=== PATIENT | female | born 1965 | race Caucasian/White ===

== ENCOUNTER 2023-03-23 08:42 | Day surgery (SDC) | payer OTHER ==
[2023-03-22 10:04] VITALS: BMI 24.8
[2023-03-23] MEDS ORDERED: PROPOFOL 40 ML ONE (11:21)
== END 2023-03-23 12:25 | disposition home or self-care (01) ==
LOC: CSHSDC 08:42
PROVIDERS: ATTEND Internal Medicine Gastroenterology
PROC: 0W3P8ZZ Control Bleeding in Gastrointestinal Tract, Via Natural or Artificial Opening Endoscopic (ICD-10-PCS; principal; 2023-03-23)
DX: K31.819 Angiodysplasia of stomach and duodenum without bleeding (principal); F41.9 Anxiety disorder, unspecified; R18.8 Other ascites; K74.60 Unspecified cirrhosis of liver; G93.40 Encephalopathy, unspecified; Z88.5 Allergy status to narcotic agent; Z88.2 Allergy status to sulfonamides; Z88.0 Allergy status to penicillin; Z88.8 Allergy status to other drugs, medicaments and biological substances; Z79.899 Other long term (current) drug therapy
CPT/HCPCS: J1642; J2704

== ENCOUNTER 2024-04-28 18:26 | Inpatient (IN) | payer OTHER ==
[2024-04-28 19:12] LABS: #Basophils 0.07 10x3/uL (0.0-0.2); #Eosinphils 0.27 10x3/uL (0.0-0.5); #Monocytes 0.44 10x3/uL (0.0-1.1); #Neutrophils 3.35 10x3/uL (1.5-8.4); %Basophils 1.5 % (0.0-2.0); %Eosinophils 5.8 % (0.0-6.0); %Lymphocytes 10.6 % (18.0-47.0); %Monocytes 9.5 % (0.0-10.0); %Neutrophils 72.2 % (40.0-75.0); Hematocrit 26.8 % (34.9-44.5); Hemoglobin 9.1 g/dL (12.0-15.5); Mean Corpuscular Hemoglobin 30.5 pg (27.0-33.0); Mean Corpuscular Volume 89.9 fL (81.6-98.3); Mean Platelet Volume 10.6 fL (7.4-10.4); Platelet Count 69 10x3/uL (150-450); RBC Distribution Width 16.9 % (11.5-14.5); Red Blood Cell (RBC) Count 2.98 10x6/uL (3.90-5.03); White Blood Cell (WBC) Count 4.6 10x3/uL (3.5-10.5)
[2024-04-28 19:21] LABS: INR-International Normal Ratio 1.2; PTT 32.5 sec (22.0-33.0); Prothrombin Time 12.9 sec (9.5-12.1)
[2024-04-28 19:24] LABS: ALT (SGPT) 19 U/L (8-55); AST (SGOT) 24 U/L (5-34); Albumin 3.1 g/dL (3.5-5.0); Alkaline Phosphatase 104 U/L (40-110); Anion Gap 11 mmol/L (10-20); BUN (Urea Nitrogen) 55 mg/dL (9.8-20.1); Bilirubin, Total 1.6 mg/dL (0.2-1.2); Calc. Creatinine Clearance 0 mL/min (70-130); Calcium 8.7 mg/dL (7.8-10.44); Carbon Dioxide 17 mmol/L (22-29); Chloride 110 mmol/L (98-107); Estimated GFR 24; Globulin 2.2 g/dL (2.4-3.5); Glucose 163 mg/dL (70-105); Lipase 35 U/L (8-78); Potassium 4.4 mmol/L (3.5-5.1); Protein, Total 5.3 g/dL (6.0-8.3); Sodium 134 mmol/L (136-145)
[2024-04-28 20:08] LABS: Acetaminophen Less than 10 mcg/mL (Less than 10); Alcohol Less than 10.0 mg/dL (Less than 10); Salicylate Less than 8.0 mg/dL (Less than 8.0)
[2024-04-28 22:08] LABS: Bilirubin Neg (Negative); Blood, Urine 10 (Negative); Clarity Clear (Clear); Glucose, Urine (Dipstick) Normal (Negative); Ketone, Urine Negative (Negative); Leukocyte 25 (Negative); Nitrite Negative (Negative); Protein, Urine (Dipstick) Negative (Neg-Trace); Urobilinogen Normal mg/dL (Less than 2)
[2024-04-28 22:17] LABS: Amphetamine Not Detected (NotDetected); Barbiturates Screen Not Detected (NotDetected); Benzodiazepine Screen Not Detected (NotDetected); Cocaine Metabolite Screen Not Detected (NotDetected); Methadone Not Detected (NotDetected); Methamphetamine Not Detected (NotDetected); Opiate Screen Not Detected (NotDetected); Oxycodone Screen Not Detected (NotDetected); Phencyclidine (PCP) Not Detected (NotDetected); THC/Cannabinoid Screen Not Detected (NotDetected); Tricyclic Screen Not Detected (NotDetected)
[2024-04-28 22:32] LABS: CAUTI Indications for Culture Alt mental st,lethar; RBC/HPF 0-3 HPF (0-3); Squamous Epithelial 0-3 HPF (0-3); Transitional Epithelial 0-3 HPF (None Seen)
[2024-04-28 22:34] LABS: Bacteria/HPF Rare-Few HPF (None Seen); Yeast-Budding 1+ HPF (None Seen)
[2024-04-28 22:35] LABS: Urine Culture Reflex No No
[2024-04-28] MEDS ORDERED: Lactated Ringer's 1,000 ML IV SCH (23:45)
[2024-04-29 00:09] LABS: Magnesium 2.2 mg/dL (1.6-2.6)
[2024-04-29] MEDS ORDERED: Glucagon 1 MG/ML KIT IM PRN (00:12)
[2024-04-29] MEDS ORDERED: Dextrose 5% in Water 1,000 ML IV PRN (00:12)
[2024-04-29] MEDS ORDERED: Dextrose 50% Abboject 50 ML SYRINGE SLOW IVP PRN (00:12)
[2024-04-29 01:46] VITALS: BMI 25.0
[2024-04-29] MEDS: Sodium Chloride 0.9% 1,000 ML IV SCH ×2 (02:18→17:01)
[2024-04-29] MEDS: Lactulose 20 GM (30 mL) UDCUP PO SCH ×2 (02:18→13:19)
[2024-04-29] MEDS: Rifaximin 200 MG TAB PO SCH ×2 (02:19→12:56)
[2024-04-29] MEDS: cefTRIAXone\\ROCEPHIN 1 GM in Sodium Chloride 0.9% 100 ML IVPB SCH (02:19)
[2024-04-29 04:12] LABS: #Basophils 0.09 10x3/uL (0.0-0.2); #Eosinphils 0.48 10x3/uL (0.0-0.5); #Monocytes 0.78 10x3/uL (0.0-1.1); #Neutrophils 3.78 10x3/uL (1.5-8.4); %Basophils 1.6 % (0.0-2.0); %Eosinophils 8.4 % (0.0-6.0); %Lymphocytes 9.5 % (18.0-47.0); %Monocytes 13.7 % (0.0-10.0); %Neutrophils 66.3 % (40.0-75.0); Anion Gap 13 mmol/L (10-20); BUN (Urea Nitrogen) 55 mg/dL (9.8-20.1); Calc. Creatinine Clearance 31 mL/min (70-130); Calcium 8.4 mg/dL (7.8-10.44); Carbon Dioxide 16 mmol/L (22-29); Chloride 112 mmol/L (98-107); Estimated GFR 25; Glucose 174 mg/dL (70-105); Hematocrit 26.8 % (34.9-44.5); Hemoglobin 8.9 g/dL (12.0-15.5); Mean Corpuscular HGB CONC 33.2 g/dL (32.0-36.0); Mean Corpuscular Hemoglobin 30.2 pg (27.0-33.0); Mean Corpuscular Volume 90.8 fL (81.6-98.3); Mean Platelet Volume 11.1 fL (7.4-10.4); Platelet Count 70 10x3/uL (150-450); Potassium 4.3 mmol/L (3.5-5.1); RBC Distribution Width 16.9 % (11.5-14.5); Red Blood Cell (RBC) Count 2.95 10x6/uL (3.90-5.03); Sodium 137 mmol/L (136-145); White Blood Cell (WBC) Count 5.5 10x3/uL (3.5-10.5)
[2024-04-29] MEDS: Insulin Lispro 100 UNIT/ML 10 ML VIAL SC PRN (06:06)
[2024-04-29] MEDS: Ondansetron PF 4 MG/2 ML Vial IVP PRN (09:26)
[2024-04-29] MEDS: Pantoprazole DR 40 MG TAB PO SCH (10:32)
[2024-04-29] MEDS: Midodrine HCl 5 MG TAB PO SCH (10:32)
[2024-04-29] MEDS ORDERED: Sodium Bicarbonate 2.5 MEQ/5 ML SDV ONE (11:02)
[2024-04-29] MEDS ORDERED: Lidocaine 1% PF 5 ML VIAL ONE (11:02)
[2024-04-29] MEDS: Folic Acid 1 MG TAB PO SCH (12:58)
[2024-04-29] MEDS: Ascorbic Acid 500 mg Chewable Tablet PO SCH (12:58)
[2024-04-29] MEDS: Ferrous Sulfate 325 MG TAB PO SCH (12:58)
[2024-04-29] MEDS: Cholecalciferol 1,000 UNITS (25 MCG) TAB PO SCH (12:58)
[2024-04-29] MEDS: Cyanocobalamin (Vitamin B-12) 1,000 MCG TAB PO SCH (12:58)
[2024-04-29] MEDS: Sodium Bicarbonate Tab 325 MG TAB PO SCH (12:58)
[2024-04-29] MEDS: Albumin 25% 25 GM (100 mL) BOT IVPB SCH ×2 (13:24→13:29)
[2024-04-30 04:12] LABS: #Basophils 0.05 10x3/uL (0.0-0.2); #Eosinphils 0.34 10x3/uL (0.0-0.5); #Monocytes 0.44 10x3/uL (0.0-1.1); #Neutrophils 2.36 10x3/uL (1.5-8.4); %Basophils 1.3 % (0.0-2.0); %Lymphocytes 15.6 % (18.0-47.0); %Monocytes 11.6 % (0.0-10.0); %Neutrophils 62.2 % (40.0-75.0); Hematocrit 20.6 % (34.9-44.5); Hemoglobin 6.8 g/dL (12.0-15.5); Mean Corpuscular Hemoglobin 29.8 pg (27.0-33.0); Mean Corpuscular Volume 90.4 fL (81.6-98.3); Mean Platelet Volume 10.9 fL (7.4-10.4); Platelet Count 50 10x3/uL (150-450); RBC Distribution Width 16.5 % (11.5-14.5); Red Blood Cell (RBC) Count 2.28 10x6/uL (3.90-5.03); White Blood Cell (WBC) Count 3.7 10x3/uL (3.5-10.5)
[2024-04-30 04:18] LABS: ALT (SGPT) 14 U/L (8-55); AST (SGOT) 15 U/L (5-34); Albumin 3.3 g/dL (3.5-5.0); Alkaline Phosphatase 91 U/L (40-110); Anion Gap 13 mmol/L (10-20); BUN (Urea Nitrogen) 55 mg/dL (9.8-20.1); Bilirubin, Total 0.7 mg/dL (0.2-1.2); Calc. Creatinine Clearance 33 mL/min (70-130); Carbon Dioxide 14 mmol/L (22-29); Chloride 115 mmol/L (98-107); Estimated GFR 27; Globulin 1.6 g/dL (2.4-3.5); Glucose 150 mg/dL (70-105); Magnesium 1.9 mg/dL (1.6-2.6); Potassium 3.5 mmol/L (3.5-5.1); Protein, Total 4.9 g/dL (6.0-8.3); Sodium 138 mmol/L (136-145)
[2024-04-30] MEDS: Calcitriol 0.25 MCG CAP PO SCH (08:18)
[2024-04-30] MEDS: Sodium Bicarbonate Tab 325 MG TAB PO SCH ×2 (10:24→10:33)
[2024-04-30 15:29] LABS: Anion Gap 13 mmol/L (10-20); BUN (Urea Nitrogen) 52 mg/dL (9.8-20.1); Calc. Creatinine Clearance 31 mL/min (70-130); Calcium 8.2 mg/dL (7.8-10.44); Carbon Dioxide 15 mmol/L (22-29); Chloride 112 mmol/L (98-107); Estimated GFR 28; Glucose 179 mg/dL (70-105); Hematocrit 24.6 % (34.9-44.5); Hemoglobin 8.2 g/dL (12.0-15.5); Platelet Count 47 10x3/uL (150-450); Potassium 3.5 mmol/L (3.5-5.1); Sodium 136 mmol/L (136-145)
[2024-04-30 16:10] VITALS: BP 139/69; TEMP 98.5
[2024-04-30] MEDS ORDERED: Sodium Bicarbonate Tab 325 MG TAB PO SCH (21:00)
== END 2024-04-30 18:00 | disposition home or self-care (01) | DRG 432 ==
LOC: CSHERS 18:26 → CSHTELE 23:26 → OBSVTOIN 04-30 14:57
PROVIDERS: ADMIT Family Medicine; ATTEND Family Medicine
PROC: 0W9G3ZZ Drainage of Peritoneal Cavity, Percutaneous Approach (ICD-10-PCS; principal; 2024-04-29)
DX: K70.31 Alcoholic cirrhosis of liver with ascites (principal); G93.41 Metabolic encephalopathy; E87.20 Acidosis, unspecified; I85.10 Secondary esophageal varices without bleeding; N17.9 Acute kidney failure, unspecified; K21.9 Gastro-esophageal reflux disease without esophagitis; D69.6 Thrombocytopenia, unspecified; Z90.49 Acquired absence of other specified parts of digestive tract; Z90.89 Acquired absence of other organs; D63.1 Anemia in chronic kidney disease; E11.22 Type 2 diabetes mellitus with diabetic chronic kidney disease; N18.30 Chronic kidney disease, stage 3 unspecified; Z91.048 Other nonmedicinal substance allergy status; Z79.82 Long term (current) use of aspirin; Z88.2 Allergy status to sulfonamides; Z88.8 Allergy status to other drugs, medicaments and biological substances; F41.9 Anxiety disorder, unspecified; F32.A Depression, unspecified
CPT/HCPCS: 36415; 36416; 36430; 49083; 70450; 71045; 80048; 80053; 80306; 80307; 81001; 82140; 83605; 83690; 83735; 85025; 85610; 85730; 86850; 86900; 86901; 87070; 87205; 93005; 96374; 96375; 96376; G0378; J0696; J1815; J2405; J7030; P9016; P9047